=== PATIENT | female | born 1985 | race Caucasian/White ===

== ENCOUNTER → 2016-07-28 | Outpatient (REF) | payer OTHER ==
[~2016-07-28] MED LIST: /LAMO20TA PO; GABA300C2 PO; IBUP200T2 PO; IMPL68IM SC; KLON0.5T PO; PERC7.5T12 PO; PROP10TA8 PO; REME15TA PO
[2016-07-28 18:35] LABS: BASO % 0.4 % (0.0-1.0); EOS # 0.1 K/mm3 (0.0-0.50); LARGE UNSTAINED CELL # 0.2 K/mm3 (0.0-0.4); LARGE UNSTAINED CELL % 2.6 % (0.0-4.0); LYMPH # 2.2 K/mm3 (1.5-6.5); LYMPH % 28.6 % (24.0-44.0); MEAN CORPUSCULAR HEMOGLOBIN 30.4 pg (27.0-33.0); MEAN CORPUSCULAR HGB CONC 33.2 g/dl (32.0-36.5); MEAN CORPUSCULAR VOLUME 91.6 fl (80.0-96.0); MONO # 0.4 K/mm3 (0.0-0.8); MONO % 5.6 % (0.0-5.0); NEUTROPHILS # 4.8 K/mm3 (1.8-7.7); NEUTROPHILS % 61.7 % (36.0-66.0); PLATELET COUNT, AUTOMATED 232 k/mm3 (150-450); RED CELL DISTRIBUTION WIDTH 12.8 % (11.5-14.5); WHITE BLOOD COUNT 7.8 K/mm3 (4.0-10.0)
[2016-07-28 19:34] LABS: FOLLICLE STIMULATING HORMONE 2.1 mIU/mL; LUTEINIZING HORMONE 6.8 mIU/mL; PROLACTIN 6.1 NG/ML
[2016-07-28 19:42] LABS: FREE T4 0.65 NG/DL (0.76-1.46); PERCENT SATURATION 11.9 % (13.2-37.4)
== END ==
LOC: M SFHCPLAZ 15:50
PROVIDERS: ATTEND Physician Assistant Medical
DX: K92.1 Melena (principal); N64.52 Nipple discharge; R23.2 Flushing

== ENCOUNTER → 2016-07-29 | Outpatient (CLI) | payer OTHER ==
--- NOTE | 2016-07-29 16:14 | REP ---
Focused left breast sonography: History: Bloody nipple discharge. Pain in the left breast. Findings: Scanning of the left breast around and posterior the nipple demonstrates one prominent duct and no mass or cyst is seen. No acoustic shadowing is observed. Impression: BIRADS category II benign focused left breast sonography. One slightly prominent duct. No mass seen. If bloody discharge persists, and it can be ascertained that it is originating from a single duct, there may be a potential role for ductography. Clinical follow-up is advised. Signed by Ariel Magallanes MD 07/29/2016 04:25 P
== END ==
LOC: M RAD 10:04
PROVIDERS: ATTEND Physician Assistant Medical
DX: N64.4 Mastodynia (principal)

== ENCOUNTER → 2016-10-24 | Outpatient (REF) | payer OTHER ==
[2016-10-24 12:08] LABS: BASO % 0.2 % (0.0-1.0); EOS # 0.1 K/mm3 (0.0-0.50); EOS % 1.2 % (0.0-3.0); LARGE UNSTAINED CELL # 0.1 K/mm3 (0.0-0.4); LARGE UNSTAINED CELL % 1.6 % (0.0-4.0); LYMPH # 1.9 K/mm3 (1.5-6.5); LYMPH % 24.3 % (24.0-44.0); MEAN CORPUSCULAR HEMOGLOBIN 30.1 pg (27.0-33.0); MEAN CORPUSCULAR HGB CONC 33.4 g/dl (32.0-36.5); MEAN CORPUSCULAR VOLUME 90.1 fl (80.0-96.0); MONO # 0.5 K/mm3 (0.0-0.8); MONO % 5.8 % (0.0-5.0); NEUTROPHILS # 5.3 K/mm3 (1.8-7.7); NEUTROPHILS % 66.8 % (36.0-66.0); PLATELET COUNT, AUTOMATED 248 k/mm3 (150-450); RED CELL DISTRIBUTION WIDTH 12.7 % (11.5-14.5); WHITE BLOOD COUNT 7.9 K/mm3 (4.0-10.0)
[2016-10-24 12:53] LABS: ERYTHROCYTE SEDIMENTATION RATE 44 mm/hr (0-20)
[2016-10-24 13:35] LABS: ANION GAP 11 MEQ/L (8-16); BLOOD UREA NITROGEN 17 MG/DL (7-18); CARBON DIOXIDE LEVEL 25 MEQ/L (21-32); CHLORIDE LEVEL 105 MEQ/L (98-107); CREATININE FOR GFR 0.55 MG/DL (0.55-1.02); GLOMERULAR FILTRATION RATE > 60.0 (>60); GLUCOSE, FASTING 124 MG/DL (70-105); POTASSIUM SERUM 3.2 MEQ/L (3.5-5.1); SODIUM LEVEL 141 MEQ/L (136-145)
== END ==
LOC: M SFHCPLAZ 10:05
PROVIDERS: ATTEND Physician Assistant Medical
DX: M51.36 Other intervertebral disc degeneration, lumbar region (principal)

== ENCOUNTER → 2016-10-29 | Outpatient (CLI) | payer OTHER ==
--- NOTE | 2016-10-29 14:26 | REP ---
MRI STUDY LUMBAR SPINE WITHOUT AND WITH IV GADOLINIUM: HISTORY: Degenerative disc disease. Swelling at prior injection site from May 2016. Low back and upper back pain. Comparison lumbar spine MRI study is from February 11, 2016. TECHNIQUE: Sagittal and axial T1 and T2-weighted scans are acquired in the usual fashion with and without fat saturation. Sequences include spin echo, turbo spin-echo, and STIR imaging sequences. Post gadolinium enhanced axial and sagittal images are acquired with T1-weighted fat sat sequences. The gadolinium enhancement dose is 10 mL of intravenous ProHance. MRI FINDINGS: Lumbar vertebral body heights are preserved. Alignment is normal and unchanged. There is some decreased disc space height and signal intensity again noted at the L4-5 and L5-S1 disc spaces consistent with degenerate disc disease at these two levels. The conus medullaris remains normal in position and appearance at L1. Incidental note is made of a somewhat prominent distal common bile duct, 8 mm in greatest dimension. Consider right upper quadrant sonography. No other extra spinal abnormality is seen. Axial and sagittal images at the L4-5 disc level demonstrate a broad-based right paracentral disc protrusion, which has improved in appearance from the February 11, 2016 study. This is subtly indents the ventral margin of the thecal sac but this has decreased in size. No neural foraminal narrowing or central canal stenosis is seen. At L5-S1, today's imaging demonstrates mild central disc bulging effacing the ventral epidural fat but without thecal sac compression. No neural foraminal narrowing is seen. No new disc herniation is seen. Other disc levels remain unremarkable. Post gadolinium enhanced images show no abnormal gadolinium enhancement. IMPRESSION: 1. No paraspinal mass or abnormal fluid collection. 2. Degenerative disc changes L4-5 and L5-S1. The central disc protrusion seen and L4-5 is smaller and has improved somewhat. 3. Incidental note is made of a somewhat prominent common bile duct, 8 mm. Consider right upper quadrant sonography for further evaluation. Signed by Ariel Magallanes MD 10/29/2016 02:37 P
== END ==
LOC: M RAD 10:31
PROVIDERS: ATTEND Physician Assistant Medical
DX: M51.36 Other intervertebral disc degeneration, lumbar region (principal)

== ENCOUNTER → 2017-05-06 | Outpatient (REF) | payer OTHER ==
[2017-05-20 14:16] LABS: BENZODIAZEPINES, URINE SCREEN Negative ng/mL (Cutoff=200); METHADONE, URINE SCREEN Negative ng/mL (Cutoff=300); OPIATES, URINE Negative ng/mL (Cutoff=300); OXYCODONE URINE Positive (.); pH, URINE 5.8 (4.5-8.9)
== END ==
LOC: M SFHCPLAZ 11:33
PROVIDERS: ATTEND Physician Assistant Medical
DX: M51.36 Other intervertebral disc degeneration, lumbar region (principal); R30.0 Dysuria

== ENCOUNTER → 2017-06-16 | Outpatient (REF) | payer OTHER ==
[2017-06-16 16:27] LABS: BASO % 0.3 % (0.0-1.0); EOS # 0.1 10^3/uL (0.0-0.50); EOS % 0.8 % (0.0-3.0); IMMATURE GRANULOCYTE % 0.3 % (0-0); LYMPH # 2.5 10^3/uL (1.5-4.5); LYMPH % 27.2 % (24.0-44.0); MEAN CORPUSCULAR HEMOGLOBIN 29.7 pg (27.0-33.0); MEAN CORPUSCULAR VOLUME 90.2 fl (80.0-96.0); MONO # 0.8 10^3/uL (0.0-0.8); MONO % 9.1 % (0.0-5.0); NEUTROPHILS # 5.8 10^3/uL (1.8-7.7); NEUTROPHILS % 62.3 % (36.0-66.0); PLATELET COUNT, AUTOMATED 289 10^3/uL (150-450); RED CELL DISTRIBUTION WIDTH 13.2 % (11.5-14.5); WHITE BLOOD COUNT 9.2 10^3/uL (4.0-10.0)
[2017-06-16 16:55] LABS: ERYTHROCYTE SEDIMENTATION RATE 43 mm/hr (0-20)
== END ==
LOC: M SFHCPLAZ 14:16
PROVIDERS: ATTEND Physician Assistant Medical
DX: I51.7 Cardiomegaly (principal)

== ENCOUNTER → 2017-11-30 | Outpatient (REF) | payer OTHER ==
[2017-12-03 00:08] LABS: Lyme Disease IgG/IgM Antibodie <0.91 ISR (0.00-0.90); Lyme Disease IgM Ab Quantitati <0.80 index (0.00-0.79)
== END ==
LOC: M SFHCPLAZ 15:22
DX: R50.9 Fever, unspecified (principal)

== ENCOUNTER → 2018-05-20 | Outpatient (REF) | payer OTHER ==
[2018-05-20 17:58] LABS: BASO % 0.9 % (0.0-1.0); EOS # 0.1 10^3/uL (0.0-0.50); EOS % 1.5 % (0.0-3.0); HEMATOCRIT 29.6 % (36.0-47.0); HEMOGLOBIN 9.1 g/dl (12.0-15.5); IMMATURE GRANULOCYTE % 0.2 % (0-3.0); LYMPH # 1.9 10^3/uL (1.5-4.5); LYMPH % 40.3 % (24.0-44.0); MEAN CORPUSCULAR HEMOGLOBIN 24.9 pg (27.0-33.0); MEAN CORPUSCULAR HGB CONC 30.7 g/dl (32.0-36.5); MEAN CORPUSCULAR VOLUME 81.1 fl (80.0-96.0); MONO # 0.4 10^3/uL (0.0-0.8); MONO % 9.1 % (0.0-5.0); NEUTROPHILS # 2.2 10^3/uL (1.8-7.7); PLATELET COUNT, AUTOMATED 177 10^3/uL (150-450); RED BLOOD COUNT 3.65 10^6/uL (4.00-5.40); RED CELL DISTRIBUTION WIDTH 15.1 % (11.5-14.5); WHITE BLOOD COUNT 4.6 10^3/uL (4.0-10.0)
[2018-05-20 18:32] LABS: ALBUMIN 3.8 GM/DL (3.2-5.2); ALBUMIN/GLOBULIN RATIO 1.23 (1.00-1.93); ALKALINE PHOSPHATASE 65 U/L (45-117); ALT/SGPT 14 U/L (12-78); ANION GAP 10 MEQ/L (8-16); AST/SGOT 10 U/L (7-37); BILIRUBIN,TOTAL 0.2 MG/DL (0.2-1.0); BLOOD UREA NITROGEN 9 MG/DL (7-18); CALCIUM LEVEL 8.1 MG/DL (8.5-10.1); CARBON DIOXIDE LEVEL 26 MEQ/L (21-32); CHLORIDE LEVEL 105 MEQ/L (98-107); CREATININE FOR GFR 0.38 MG/DL (0.55-1.30); FERRITIN 6 NG/ML (8-252); GLOMERULAR FILTRATION RATE > 60.0 (>60); GLUCOSE, FASTING 82 MG/DL (70-100); IRON (FE) 27 UG/DL (50-170); PERCENT SATURATION 6.3 % (13.2-45.0); POTASSIUM SERUM 3.1 MEQ/L (3.5-5.1); SODIUM LEVEL 141 MEQ/L (136-145); TOTAL IRON BINDING CAPACITY 429 UG/DL (250-450); TOTAL PROTEIN 6.9 GM/DL (6.4-8.2)
== END ==
LOC: M SFHCPLAZ 16:23
DX: K27.9 Peptic ulcer, site unspecified, unspecified as acute or chronic, without hemorrhage or perforation (principal); M51.36 Other intervertebral disc degeneration, lumbar region
CPT/HCPCS: 83550

== ENCOUNTER → 2018-05-31 | Outpatient (REF) | payer OTHER ==
[2018-05-31 19:03] LABS: BASO % 0.5 % (0.0-1.0); EOS # 0.1 10^3/uL (0.0-0.50); EOS % 0.9 % (0.0-3.0); HEMATOCRIT 30.2 % (36.0-47.0); IMMATURE GRANULOCYTE % 0.3 % (0-3.0); LYMPH # 2.2 10^3/uL (1.5-4.5); LYMPH % 33.3 % (24.0-44.0); MEAN CORPUSCULAR HEMOGLOBIN 24.8 pg (27.0-33.0); MEAN CORPUSCULAR HGB CONC 29.8 g/dl (32.0-36.5); MEAN CORPUSCULAR VOLUME 83.2 fl (80.0-96.0); MONO # 0.6 10^3/uL (0.0-0.8); MONO % 9.8 % (0.0-5.0); NEUTROPHILS # 3.6 10^3/uL (1.8-7.7); NEUTROPHILS % 55.2 % (36.0-66.0); PLATELET COUNT, AUTOMATED 222 10^3/uL (150-450); RED BLOOD COUNT 3.63 10^6/uL (4.00-5.40); RED CELL DISTRIBUTION WIDTH 15.3 % (11.5-14.5); WHITE BLOOD COUNT 6.5 10^3/uL (4.0-10.0)
[2018-05-31 19:06] LABS: ALBUMIN/GLOBULIN RATIO 1.43 (1.00-1.93); ALKALINE PHOSPHATASE 77 U/L (45-117); ALT/SGPT 12 U/L (12-78); ANION GAP 7 MEQ/L (8-16); AST/SGOT 9 U/L (7-37); BILIRUBIN,TOTAL 0.2 MG/DL (0.2-1.0); BLOOD UREA NITROGEN 10 MG/DL (7-18); CALCIUM LEVEL 8.4 MG/DL (8.5-10.1); CARBON DIOXIDE LEVEL 27 MEQ/L (21-32); CHLORIDE LEVEL 107 MEQ/L (98-107); CREATININE FOR GFR 0.27 MG/DL (0.55-1.30); GLOMERULAR FILTRATION RATE > 60.0 (>60); GLUCOSE, FASTING 80 MG/DL (70-100); POTASSIUM SERUM 3.4 MEQ/L (3.5-5.1); SODIUM LEVEL 141 MEQ/L (136-145); TOTAL PROTEIN 6.8 GM/DL (6.4-8.2)
== END ==
LOC: M SFHCPLAZ 16:26
DX: E87.6 Hypokalemia (principal)

== ENCOUNTER → 2019-01-10 | Outpatient (CLI) | payer OTHER ==
[~2019-01-10] MED LIST changes: -/LAMO20TA PO; +LAMI1TAB9 PO
--- NOTE | 2019-01-10 13:47 | REP ---
Clinical: Superficial swelling. Technique: Real time abreu scale ultrasound examination using linear high frequency transducer. Findings: Directed ultrasound examination midline base of the spine at the site of prior epidural injection demonstrates normal subcutaneous tissue without fluid collection, mass or obvious abnormality by ultrasound examination. Impression: No obvious abnormality. Electronically Signed by Rolando Quiroz MD 01/10/2019 01:39 P
== END ==
LOC: M RAD 13:02
PROVIDERS: ATTEND Physician Assistant Medical
DX: M51.36 Other intervertebral disc degeneration, lumbar region (principal)

== ENCOUNTER → 2019-12-16 | Outpatient (REF) | payer OTHER ==
[~2019-12-16] MED LIST changes: +APAP500T10 PO; +BISO5TAB14 PO; +CARA1TAB6 PO; +IBUP200C25 PO; +KLOR20TA42 FT; +LORA-674 PO; +NEUR300C PO; +NEUR600T PO; +OMEP40CA97 PO; +OXYC1TAB23 PO; +TIZA6CAP PO; +VITA-243 PO
[2019-12-16 15:09] LABS: BASO % 0.6 % (0.0-1.0); EOS # 0.1 10^3/uL (0.0-0.5); EOS % 1.8 % (0.0-3.0); HEMATOCRIT 28.9 % (36.0-47.0); HEMOGLOBIN 8.9 g/dl (12.0-15.5); LYMPH # 2.4 10^3/uL (1.5-5.0); LYMPH % 33.1 % (24.0-44.0); MEAN CORPUSCULAR HEMOGLOBIN 25.6 pg (27.0-33.0); MEAN CORPUSCULAR HGB CONC 30.8 g/dl (32.0-36.5); MEAN CORPUSCULAR VOLUME 83.3 fl (80.0-96.0); MONO # 0.7 10^3/uL (0.0-0.8); MONO % 9.7 % (0.0-5.0); NEUTROPHILS # 3.9 10^3/uL (1.5-8.5); NEUTROPHILS % 54.4 % (36.0-66.0); PLATELET COUNT, AUTOMATED 270 10^3/uL (150-450); RED BLOOD COUNT 3.47 10^6/uL (4.00-5.40); WHITE BLOOD COUNT 7.2 10^3/uL (4.0-10.0)
[2019-12-16 15:25] LABS: ALBUMIN 3.2 GM/DL (3.2-5.2); ALT/SGPT 15 U/L (12-78); BILIRUBIN,TOTAL 0.1 MG/DL (0.2-1.0); BLOOD UREA NITROGEN 14 MG/DL (7-18); C REACTIVE PROTEIN QUANTITATIV < 0.30 MG/DL (0.00-0.30); CARBON DIOXIDE LEVEL 27 MEQ/L (21-32); CHLORIDE LEVEL 109 MEQ/L (98-107); CREATININE FOR GFR 0.38 MG/DL (0.55-1.30); GLOMERULAR FILTRATION RATE > 60.0 (>60); GLUCOSE, FASTING 88 MG/DL (70-100); SODIUM LEVEL 141 MEQ/L (136-145); TOTAL PROTEIN 6.5 GM/DL (6.4-8.2)
[2019-12-16 15:38] LABS: ERYTHROCYTE SEDIMENTATION RATE 45 mm/hr (0-20)
[2019-12-16 17:54] LABS: APPEARANCE, URINE HAZY (CLEAR); BACTERIA, URINE AUTO NEGATIVE (NEGATIVE); BILIRUBIN, URINE AUTO NEGATIVE (NEGATIVE); BLOOD, URINE BLOOD NEGATIVE (NEGATIVE); COLOR, URINE AMBER (YELLOW); GLUCOSE, URINE (UA) AUTO NEGATIVE (NEGATIVE); KETONE, URINE AUTO NEGATIVE (NEGATIVE); LEUKOCYTE ESTERASE, URINE AUTO NEGATIVE (NEGATIVE); MUCUS, URINE SMALL (NEGATIVE); NITRITE, URINE AUTO NEGATIVE (NEGATIVE); PROTEIN, URINE AUTO NEGATIVE (NEGATIVE); RBC, URINE AUTO 3 /HPF (0-3); SPECIFIC GRAVITY URINE AUTO 1.026 (1.002-1.035); SQUAMOUS EPITHELIAL CELL UR AU 4 /HPF (0-6); UROBILINOGEN, URINE AUTO 0.2 mg/dL (0.0-2.0); WBC, URINE AUTO 1 /HPF (0-3)
[2019-12-23 09:07] LABS: OPIATES, URINE Negative ng/mL (Cutoff=300); OXYCODONE URINE Positive (.); OXYCODONE, URINE CONFIRM 2635 ng/mL (Cutoff=100); OXYCODONE/OXYMORPH, URINE Positive (Cutoff=100); OXYMORPHONE, URINE Positive (.); OXYMORPHONE, URINE CONFIRM 378 ng/mL (Cutoff=100)
== END ==
LOC: M SFHCPLAZ 14:15
PROVIDERS: ATTEND Physician Assistant Medical
DX: R30.0 Dysuria (principal); F11.90 Opioid use, unspecified, uncomplicated; R50.81 Fever presenting with conditions classified elsewhere

== ENCOUNTER → 2020-01-02 | Outpatient (REF) | payer OTHER ==
[2020-01-02 13:17] LABS: BASO # 0.1 10^3/uL (0.0-0.2); BASO % 0.9 % (0.0-1.0); EOS # 0.2 10^3/uL (0.0-0.5); EOS % 2.1 % (0.0-3.0); HEMATOCRIT 31.9 % (36.0-47.0); HEMOGLOBIN 9.7 g/dl (12.0-15.5); LYMPH # 2.6 10^3/uL (1.5-5.0); LYMPH % 37.7 % (24.0-44.0); MEAN CORPUSCULAR HEMOGLOBIN 25.6 pg (27.0-33.0); MEAN CORPUSCULAR HGB CONC 30.4 g/dl (32.0-36.5); MEAN CORPUSCULAR VOLUME 84.2 fl (80.0-96.0); MONO # 0.6 10^3/uL (0.0-0.8); MONO % 8.1 % (0.0-5.0); NEUTROPHILS # 3.6 10^3/uL (1.5-8.5); NEUTROPHILS % 50.8 % (36.0-66.0); PLATELET COUNT, AUTOMATED 253 10^3/uL (150-450); RED BLOOD COUNT 3.79 10^6/uL (4.00-5.40)
[2020-01-02 13:54] LABS: FERRITIN 6 NG/ML (8-252); IRON (FE) 20 UG/DL (50-170)
== END ==
LOC: M SFHCPLAZ 12:08
PROVIDERS: ATTEND Physician Assistant Medical
DX: D50.0 Iron deficiency anemia secondary to blood loss (chronic) (principal)

== ENCOUNTER → 2020-05-21 | Outpatient (REF) | payer OTHER ==
[2020-05-21 17:14] LABS: HEMOGLOBIN 7.2 g/dl (12.0-15.5); MEAN CORPUSCULAR HEMOGLOBIN 22.3 pg (27.0-33.0); MEAN CORPUSCULAR HGB CONC 27.7 g/dl (32.0-36.5); MEAN CORPUSCULAR VOLUME 80.5 fl (80.0-96.0); PLATELET COUNT, AUTOMATED 259 10^3/uL (150-450); RED BLOOD COUNT 3.23 10^6/uL (4.00-5.40); WHITE BLOOD COUNT 7.1 10^3/uL (4.0-10.0)
[2020-05-21 18:36] LABS: ERYTHROCYTE SEDIMENTATION RATE 45 mm/hr (0-20)
[2020-05-21 18:45] LABS: C REACTIVE PROTEIN QUANTITATIV < 0.30 MG/DL (0.00-0.30); FERRITIN 5 NG/ML (8-252); IRON (FE) 20 UG/DL (50-170)
== END ==
LOC: M SFHCPLAZ 14:20
PROVIDERS: ATTEND Physician Assistant Medical
DX: D50.0 Iron deficiency anemia secondary to blood loss (chronic) (principal); R19.7 Diarrhea, unspecified

== ENCOUNTER → 2020-05-23 | Outpatient (CLI) | payer OTHER | LOC: M LAB 13:26 | PROVIDERS: ATTEND Physician Assistant Medical | DX: D50.9 Iron deficiency anemia, unspecified (principal); Z88.1 Allergy status to other antibiotic agents; Z88.8 Allergy status to other drugs, medicaments and biological substances ==

== ENCOUNTER 2020-05-24 13:20 | Outpatient (CLI) | payer OTHER ==
[2020-05-24] VITALS (9 sets, daily range): BP systolic 110–133; BP diastolic 59–96
[~2020-05-24] VITALS: Ht 162.6 cm; Wt 52.9 kg
[~2020-05-24 13:20] MED LIST changes: +ACETAMINOPHEN 500 MG TAB PO SCH; +diphenhydrAMINE 25MG CAP PO SCH
== END 2020-05-24 17:10 | disposition home or self-care (01) ==
LOC: M INFU 13:20
PROVIDERS: ATTEND Physician Assistant Medical
DX: D50.9 Iron deficiency anemia, unspecified (principal); Z88.1 Allergy status to other antibiotic agents
CPT/HCPCS: 36430; P9016

== ENCOUNTER → 2020-07-04 | Outpatient (REF) | payer OTHER ==
[~2020-07-04] MED LIST changes: -ACETAMINOPHEN 500 MG TAB PO SCH; -diphenhydrAMINE 25MG CAP PO SCH
[2020-07-04 18:02] LABS: BASO # 0.1 10^3/uL (0.0-0.2); BASO % 0.7 % (0.0-1.0); EOS # 0.1 10^3/uL (0.0-0.5); EOS % 1.6 % (0.0-3.0); HEMOGLOBIN 9.4 g/dl (12.0-15.5); LYMPH # 1.9 10^3/uL (1.5-5.0); LYMPH % 27.3 % (24.0-44.0); MEAN CORPUSCULAR HEMOGLOBIN 24.7 pg (27.0-33.0); MEAN CORPUSCULAR HGB CONC 29.4 g/dl (32.0-36.5); MEAN CORPUSCULAR VOLUME 84.2 fl (80.0-96.0); MONO # 0.5 10^3/uL (0.0-0.8); MONO % 7.7 % (0.0-5.0); NEUTROPHILS # 4.4 10^3/uL (1.5-8.5); NEUTROPHILS % 62.4 % (36.0-66.0); PLATELET COUNT, AUTOMATED 212 10^3/uL (150-450)
[2020-07-04 18:08] LABS: FERRITIN 6 NG/ML (8-252); IRON (FE) 51 UG/DL (50-170)
== END ==
LOC: M SFHCPLAZ 14:33
PROVIDERS: ATTEND Physician Assistant Medical
DX: K27.9 Peptic ulcer, site unspecified, unspecified as acute or chronic, without hemorrhage or perforation (principal)

== ENCOUNTER → 2021-04-09 | Outpatient (CLI) | payer OTHER ==
[~2021-04-09] MED LIST changes: -KLOR20TA42 FT; +OMEP40CA4 PO; -OMEP40CA97 PO; +POTA-141 FT
--- NOTE | 2021-04-09 12:06 | REP ---
INDICATION: LBP W/ DDD. Pain radiating down both legs, left greater than right. COMPARISON: Comparison MRI study of the lumbar spine is from October 29, 2016. TECHNIQUE: Sagittal and axial T1 and T2-weighted scans are acquired in the usual fashion with and without fat saturation. Sequences include spin echo, turbo spin-echo, and STIR imaging sequences. FINDINGS: Lumbar vertebral body heights are preserved. Alignment is normal. There is no evidence of spondylolysis or spondylolisthesis. The tip of the conus medullaris is normal in position and appearance unchanged at L1. CBD is visible today, within normal range measuring 5.4 mm. No extra vertebral abnormality is appreciated. Axial and sagittal images taken at L1-2, L2-3, and L3-4 remain unremarkable. No spinal stenosis or foraminal narrowing is seen at any of these levels. At L4-5, there is degenerative disc narrowing and some desiccation. A small central focal disc bulge is seen. This is appears improved from the 2017 prior study. There is minimal indentation of the ventral margin of the thecal sac. No spinal stenosis or foraminal narrowing is seen. There is mild facet hypertrophy at L4-5. At L5-S1, there is a small central focal disc protrusion which extends caudally for 2-3 mm over the posterior margin of S1. There is degenerative narrowing and desiccation of the L5-S1 disc. There is subtle indentation of the ventral margin of the thecal sac. No spinal stenosis is seen. Minimal facet hypertrophy is present. No foraminal narrowing is seen. IMPRESSION: Degenerative disc and facet changes are again noted at L4-5 and L5-S1. L4-5 central disc bulge is improved. There is a small central focal disc protrusion at L5-S1 with only minimal thecal sac indentation. No foraminal narrowing or spinal stenosis seen. <Electronically signed by Robbie Magallanes > 04/09/21 [id number]
== END ==
LOC: M PLAIMG 10:29
PROVIDERS: ATTEND Physician Assistant Medical
DX: M51.36 Other intervertebral disc degeneration, lumbar region (principal)

== ENCOUNTER → 2021-07-02 | Outpatient (CLI) | payer OTHER | LOC: M PAIN 11:00 | PROVIDERS: ATTEND Anesthesiology | DX: M54.50 Low back pain, unspecified (principal); M79.18 Myalgia, other site; M53.3 Sacrococcygeal disorders, not elsewhere classified; F31.9 Bipolar disorder, unspecified; K21.9 Gastro-esophageal reflux disease without esophagitis; F41.9 Anxiety disorder, unspecified; F43.10 Post-traumatic stress disorder, unspecified; Z87.820 Personal history of traumatic brain injury; Z91.410 Personal history of adult physical and sexual abuse; F17.210 Nicotine dependence, cigarettes, uncomplicated; Z79.891 Long term (current) use of opiate analgesic; Z79.899 Other long term (current) drug therapy; Z88.0 Allergy status to penicillin; Z88.8 Allergy status to other drugs, medicaments and biological substances ==

== ENCOUNTER → 2021-09-25 | Outpatient (CLI) | payer OTHER | LOC: M LABSMTC 10:00 | PROVIDERS: ATTEND Anesthesiology | DX: Z11.52 Encounter for screening for COVID-19 (principal) ==

== ENCOUNTER → 2021-09-26 | Outpatient (CLI) | payer OTHER | LOC: M PAIN 14:45 | PROVIDERS: ATTEND Nurse Practitioner Family | DX: M79.10 Myalgia, unspecified site (principal); F31.9 Bipolar disorder, unspecified; M51.36 Other intervertebral disc degeneration, lumbar region; K21.9 Gastro-esophageal reflux disease without esophagitis; J30.9 Allergic rhinitis, unspecified; F41.9 Anxiety disorder, unspecified; F43.10 Post-traumatic stress disorder, unspecified; M54.2 Cervicalgia; F17.210 Nicotine dependence, cigarettes, uncomplicated; Z79.891 Long term (current) use of opiate analgesic; Z79.899 Other long term (current) drug therapy; Z87.820 Personal history of traumatic brain injury; Z88.0 Allergy status to penicillin; Z88.8 Allergy status to other drugs, medicaments and biological substances ==

== ENCOUNTER → 2021-09-30 | Outpatient (CLI) | payer OTHER ==
[~2021-09-30] MED LIST changes: +BUPIVACAINE HCL 0.25% 10ML VIAL As Ordered ONE; +BUPIVACAINE HCL 0.25% 30ML VIAL As Ordered ONE; +TRIAMCINOLONE ACETONIDE SUSP 40 MG/ML VIAL (J3301) As Ordered ONE; +diazePAM 5MG TABLET As Ordered ONE; +oxyCODONE 5MG TAB As Ordered ONE
== END ==
LOC: M PAIN 08:30
PROVIDERS: ATTEND Anesthesiology
DX: M79.18 Myalgia, other site (principal); F31.9 Bipolar disorder, unspecified; M51.36 Other intervertebral disc degeneration, lumbar region; K21.9 Gastro-esophageal reflux disease without esophagitis; J30.9 Allergic rhinitis, unspecified; F41.9 Anxiety disorder, unspecified; F43.10 Post-traumatic stress disorder, unspecified; M54.2 Cervicalgia; F17.210 Nicotine dependence, cigarettes, uncomplicated; Z79.891 Long term (current) use of opiate analgesic; Z79.899 Other long term (current) drug therapy; Z87.820 Personal history of traumatic brain injury; Z88.0 Allergy status to penicillin; Z88.8 Allergy status to other drugs, medicaments and biological substances
CPT/HCPCS: 20552; J3301

== ENCOUNTER → 2021-10-10 | Outpatient (CLI) | payer OTHER ==
[~2021-10-10] MED LIST changes: -BUPIVACAINE HCL 0.25% 10ML VIAL As Ordered ONE; -BUPIVACAINE HCL 0.25% 30ML VIAL As Ordered ONE; -TRIAMCINOLONE ACETONIDE SUSP 40 MG/ML VIAL (J3301) As Ordered ONE; -diazePAM 5MG TABLET As Ordered ONE; -oxyCODONE 5MG TAB As Ordered ONE
[2021-10-10 10:42] LABS: HEMATOCRIT 25.7 % (36.0-47.0); HEMOGLOBIN 7.1 g/dl (12.0-15.5); MEAN CORPUSCULAR HEMOGLOBIN 23.5 pg (27.0-33.0); MEAN CORPUSCULAR HGB CONC 27.6 g/dl (32.0-36.5); MEAN CORPUSCULAR VOLUME 85.1 fl (80.0-96.0); PLATELET COUNT, AUTOMATED 219 10^3/uL (150-450); RED BLOOD COUNT 3.02 10^6/uL (4.00-5.40); WHITE BLOOD COUNT 5.8 10^3/uL (4.0-10.0)
[2021-10-10 11:15] LABS: FERRITIN 5 NG/ML (8-252); IRON (FE) 19 UG/DL (50-170)
[2021-10-10 11:17] LABS: BASOPHILS 1 % (0-1); EOSINOPHILS 4 % (0-3); HYPERSEGMENTED POLYS 2+; LYMPHOCYTES 37 % (16-44); MONOCYTES 5 % (0-5); NEUTROPHILS 53 % (28-66)
[2021-10-10 11:18] LABS: STOMATOCYTES 3+
[2021-10-10 11:19] LABS: OVALOCYTES 2+
[2021-10-10 11:20] LABS: PLATELET ESTIMATE NORMAL (NORMAL); TEAR DROP CELLS 1+
[2021-10-10 11:21] LABS: MICROCYTOSIS 2+
== END ==
LOC: M LAB 09:39
PROVIDERS: ATTEND Physician Assistant Medical
DX: D50.9 Iron deficiency anemia, unspecified (principal)

== ENCOUNTER 2021-10-11 12:06 | Outpatient (CLI) | payer OTHER ==
[~2021-10-11] VITALS: Ht 158.8 cm; Wt 50.0 kg
[2021-10-11] MEDS ORDERED: diphenhydrAMINE 25MG CAP PO ONE (12:30)
[2021-10-11] MEDS ORDERED: ACETAMINOPHEN 325 MG TAB PO ONE (12:30)
[2021-10-11 12:48] VITALS: BP 137/97
[2021-10-11 13:05] VITALS: BP 135/74
[2021-10-11 14:41] VITALS: BP 133/92
[2021-10-11 15:10] VITALS: BP 138/82
[2021-10-11 16:09] VITALS: BP 148/78
[2021-10-11 16:15] VITALS: BP 132/98
== END 2021-10-11 16:15 | disposition home or self-care (01) ==
LOC: M INFU 12:06
PROVIDERS: ATTEND Physician Assistant Medical
DX: D64.9 Anemia, unspecified (principal); Z88.1 Allergy status to other antibiotic agents
CPT/HCPCS: 36430; 86850; 86870; 86900; 86901; 86905; 86920; P9016

== ENCOUNTER → 2021-11-20 | Outpatient (CLI) | payer OTHER | LOC: M PAIN 10:00 | PROVIDERS: ATTEND Nurse Practitioner Family | DX: M79.10 Myalgia, unspecified site (principal); F31.9 Bipolar disorder, unspecified; F41.9 Anxiety disorder, unspecified; M51.36 Other intervertebral disc degeneration, lumbar region; K21.9 Gastro-esophageal reflux disease without esophagitis; J30.9 Allergic rhinitis, unspecified; K27.9 Peptic ulcer, site unspecified, unspecified as acute or chronic, without hemorrhage or perforation; Z87.820 Personal history of traumatic brain injury; F43.10 Post-traumatic stress disorder, unspecified; M54.2 Cervicalgia; F17.210 Nicotine dependence, cigarettes, uncomplicated; Z79.891 Long term (current) use of opiate analgesic; Z79.1 Long term (current) use of non-steroidal anti-inflammatories (NSAID); Z79.899 Other long term (current) drug therapy; Z88.0 Allergy status to penicillin; Z88.8 Allergy status to other drugs, medicaments and biological substances ==

== ENCOUNTER → 2022-05-22 | Outpatient (CLI) | payer OTHER | LOC: M LABSMTC 09:50 | PROVIDERS: ATTEND Anesthesiology | DX: Z01.812 Encounter for preprocedural laboratory examination (principal); Z20.822 Contact with and (suspected) exposure to COVID-19 ==

== ENCOUNTER → 2022-05-26 | Outpatient (CLI) | payer OTHER ==
[~2022-05-26] MED LIST changes: +BUPIVACAINE HCL 0.25% 10ML VIAL As Ordered ONE; +BUPIVACAINE HCL 0.25% 30ML VIAL As Ordered ONE; +TRIAMCINOLONE ACETONIDE SUSP 40 MG/ML VIAL (J3301) As Ordered ONE; +diazePAM 5MG TABLET As Ordered ONE; +oxyCODONE 5MG TAB As Ordered ONE
== END ==
LOC: M PAIN 10:30
PROVIDERS: ATTEND Anesthesiology
DX: M79.18 Myalgia, other site (principal); M54.50 Low back pain, unspecified; M51.36 Other intervertebral disc degeneration, lumbar region; M47.816 Spondylosis without myelopathy or radiculopathy, lumbar region; K21.9 Gastro-esophageal reflux disease without esophagitis; J30.9 Allergic rhinitis, unspecified; F41.9 Anxiety disorder, unspecified; F43.10 Post-traumatic stress disorder, unspecified; M47.812 Spondylosis without myelopathy or radiculopathy, cervical region; M54.2 Cervicalgia; F17.210 Nicotine dependence, cigarettes, uncomplicated; Z79.1 Long term (current) use of non-steroidal anti-inflammatories (NSAID); Z79.899 Other long term (current) drug therapy; Z88.1 Allergy status to other antibiotic agents; Z88.8 Allergy status to other drugs, medicaments and biological substances
CPT/HCPCS: 20552; J3301

== ENCOUNTER → 2022-06-09 | Outpatient (CLI) | payer OTHER ==
[~2022-06-09] MED LIST changes: -BUPIVACAINE HCL 0.25% 10ML VIAL As Ordered ONE; -BUPIVACAINE HCL 0.25% 30ML VIAL As Ordered ONE; -TRIAMCINOLONE ACETONIDE SUSP 40 MG/ML VIAL (J3301) As Ordered ONE; -diazePAM 5MG TABLET As Ordered ONE; -oxyCODONE 5MG TAB As Ordered ONE
== END ==
LOC: M PAIN 13:15
PROVIDERS: ATTEND Anesthesiology
DX: M79.10 Myalgia, unspecified site (principal); M54.50 Low back pain, unspecified; G89.29 Other chronic pain; K21.9 Gastro-esophageal reflux disease without esophagitis; F17.210 Nicotine dependence, cigarettes, uncomplicated; Z86.59 Personal history of other mental and behavioral disorders; Z87.820 Personal history of traumatic brain injury; Z88.1 Allergy status to other antibiotic agents; Z88.8 Allergy status to other drugs, medicaments and biological substances; Z79.899 Other long term (current) drug therapy

== ENCOUNTER → 2022-06-17 | Outpatient (CLI) | payer OTHER | LOC: M PAIN 14:45 | PROVIDERS: ATTEND Anesthesiology | DX: M54.50 Low back pain, unspecified (principal); F31.9 Bipolar disorder, unspecified; M51.36 Other intervertebral disc degeneration, lumbar region; M47.816 Spondylosis without myelopathy or radiculopathy, lumbar region; K21.9 Gastro-esophageal reflux disease without esophagitis; J30.9 Allergic rhinitis, unspecified; F41.9 Anxiety disorder, unspecified; Z87.820 Personal history of traumatic brain injury; F43.10 Post-traumatic stress disorder, unspecified; M54.2 Cervicalgia; Z79.1 Long term (current) use of non-steroidal anti-inflammatories (NSAID); Z79.899 Other long term (current) drug therapy; F17.210 Nicotine dependence, cigarettes, uncomplicated; Z88.0 Allergy status to penicillin; Z88.8 Allergy status to other drugs, medicaments and biological substances; Z53.21 Procedure and treatment not carried out due to patient leaving prior to being seen by health care provider ==

== ENCOUNTER → 2022-06-20 | Outpatient (CLI) | payer OTHER | LOC: M PAIN 09:00 | PROVIDERS: ATTEND Anesthesiology | DX: M54.50 Low back pain, unspecified (principal); M53.3 Sacrococcygeal disorders, not elsewhere classified; F31.9 Bipolar disorder, unspecified; M47.816 Spondylosis without myelopathy or radiculopathy, lumbar region; K21.9 Gastro-esophageal reflux disease without esophagitis; M51.36 Other intervertebral disc degeneration, lumbar region; J30.9 Allergic rhinitis, unspecified; F41.9 Anxiety disorder, unspecified; Z87.820 Personal history of traumatic brain injury; F43.10 Post-traumatic stress disorder, unspecified; M54.2 Cervicalgia; F17.210 Nicotine dependence, cigarettes, uncomplicated; Z91.410 Personal history of adult physical and sexual abuse; Z79.899 Other long term (current) drug therapy; Z88.0 Allergy status to penicillin; Z88.8 Allergy status to other drugs, medicaments and biological substances ==

== ENCOUNTER → 2022-07-23 | Outpatient (CLI) | payer OTHER | LOC: M PAIN 09:45 | PROVIDERS: ATTEND Anesthesiology | DX: M53.3 Sacrococcygeal disorders, not elsewhere classified (principal); K21.9 Gastro-esophageal reflux disease without esophagitis; F17.210 Nicotine dependence, cigarettes, uncomplicated; Z86.59 Personal history of other mental and behavioral disorders; Z87.820 Personal history of traumatic brain injury; Z88.1 Allergy status to other antibiotic agents; Z88.8 Allergy status to other drugs, medicaments and biological substances; Z79.899 Other long term (current) drug therapy ==

== ENCOUNTER → 2022-07-30 | Outpatient (CLI) | payer OTHER | LOC: M PAIN 09:45 | PROVIDERS: ATTEND Anesthesiology | DX: M46.1 Sacroiliitis, not elsewhere classified (principal); M53.3 Sacrococcygeal disorders, not elsewhere classified; F31.9 Bipolar disorder, unspecified; M47.816 Spondylosis without myelopathy or radiculopathy, lumbar region; K21.9 Gastro-esophageal reflux disease without esophagitis; J30.9 Allergic rhinitis, unspecified; F41.9 Anxiety disorder, unspecified; F43.10 Post-traumatic stress disorder, unspecified; Z87.820 Personal history of traumatic brain injury; M54.2 Cervicalgia; Z79.1 Long term (current) use of non-steroidal anti-inflammatories (NSAID); Z79.899 Other long term (current) drug therapy; F17.210 Nicotine dependence, cigarettes, uncomplicated; Z88.0 Allergy status to penicillin; Z88.8 Allergy status to other drugs, medicaments and biological substances ==

== ENCOUNTER → 2022-09-17 | Outpatient (CLI) | payer OTHER | LOC: M LABSMTC 08:35 | PROVIDERS: ATTEND Anesthesiology | DX: Z01.812 Encounter for preprocedural laboratory examination (principal) ==

== ENCOUNTER → 2022-09-19 | Outpatient (CLI) | payer OTHER ==
[~2022-09-19] MED LIST changes: +BUPIVACAINE HCL 0.25% 30ML VIAL As Ordered ONE; +ISOVUE-M 300 61% 15ML VIAL As Ordered ONE; +LIDOCAINE 1% SDV 30ML VIAL As Ordered ONE; +TRIAMCINOLONE ACETONIDE SUSP 40MG/ML 1ML VIAL As Ordered ONE; +diazePAM 5MG TABLET As Ordered ONE; +oxyCODONE 5MG TAB As Ordered ONE
== END ==
LOC: M PAIN 10:15
PROVIDERS: ATTEND Anesthesiology
DX: M46.1 Sacroiliitis, not elsewhere classified (principal); F31.9 Bipolar disorder, unspecified; M51.36 Other intervertebral disc degeneration, lumbar region; K21.9 Gastro-esophageal reflux disease without esophagitis; J30.9 Allergic rhinitis, unspecified; F41.9 Anxiety disorder, unspecified; F43.10 Post-traumatic stress disorder, unspecified; M54.2 Cervicalgia; F17.210 Nicotine dependence, cigarettes, uncomplicated; Z79.1 Long term (current) use of non-steroidal anti-inflammatories (NSAID); Z79.899 Other long term (current) drug therapy; Z88.1 Allergy status to other antibiotic agents; Z88.8 Allergy status to other drugs, medicaments and biological substances
CPT/HCPCS: 27096; J3301; S0020

== ENCOUNTER → 2022-11-11 | Outpatient (CLI) | payer OTHER ==
[~2022-11-11] MED LIST changes: -BUPIVACAINE HCL 0.25% 30ML VIAL As Ordered ONE; -ISOVUE-M 300 61% 15ML VIAL As Ordered ONE; -LIDOCAINE 1% SDV 30ML VIAL As Ordered ONE; -TRIAMCINOLONE ACETONIDE SUSP 40MG/ML 1ML VIAL As Ordered ONE; -diazePAM 5MG TABLET As Ordered ONE; -oxyCODONE 5MG TAB As Ordered ONE
== END ==
LOC: M PAIN 09:15
PROVIDERS: ATTEND Nurse Practitioner Family
DX: M46.1 Sacroiliitis, not elsewhere classified (principal); F31.9 Bipolar disorder, unspecified; K21.9 Gastro-esophageal reflux disease without esophagitis; M47.816 Spondylosis without myelopathy or radiculopathy, lumbar region; M51.36 Other intervertebral disc degeneration, lumbar region; F41.9 Anxiety disorder, unspecified; M54.2 Cervicalgia; F17.210 Nicotine dependence, cigarettes, uncomplicated; Z79.899 Other long term (current) drug therapy; Z88.1 Allergy status to other antibiotic agents; Z88.8 Allergy status to other drugs, medicaments and biological substances

== ENCOUNTER → 2022-12-08 | Outpatient (REF) | payer OTHER | LOC: M SFHCPLAZ 09:33 | PROVIDERS: ATTEND Physician Assistant Medical | DX: Z53.9 Procedure and treatment not carried out, unspecified reason (principal) ==

== ENCOUNTER → 2022-12-10 | Outpatient (CLI) | payer OTHER | LOC: M LAB 10:38 | PROVIDERS: ATTEND Physician Assistant Medical | DX: D50.9 Iron deficiency anemia, unspecified (principal); I95.1 Orthostatic hypotension ==

== ENCOUNTER 2022-12-11 09:25 | Outpatient (CLI) | payer OTHER ==
[~2022-12-11] VITALS: Ht 160 cm; Wt 53.6 kg
[2022-12-11 09:47] VITALS: BP 132/60
[2022-12-11 10:10] VITALS: BP 113/69
[2022-12-11 11:24] VITALS: BP 135/74
[2022-12-11 11:50] VITALS: BP 137/80
[2022-12-11 13:10] VITALS: BP 136/83
== END 2022-12-11 09:30 ==
LOC: M INFU 09:25
PROVIDERS: ATTEND Physician Assistant Medical
DX: D50.9 Iron deficiency anemia, unspecified (principal); I95.1 Orthostatic hypotension; Z88.0 Allergy status to penicillin; Z88.8 Allergy status to other drugs, medicaments and biological substances
CPT/HCPCS: 36430; P9016

== ENCOUNTER → 2022-12-12 | Outpatient (REF) | payer OTHER | LOC: M SFHCPLAZ 16:13 | PROVIDERS: ATTEND Physician Assistant Medical | DX: Z53.9 Procedure and treatment not carried out, unspecified reason (principal) ==

== ENCOUNTER → 2022-12-23 | Outpatient (CLI) | payer OTHER | LOC: M PAIN 09:30 | PROVIDERS: ATTEND Nurse Practitioner Family | DX: M46.1 Sacroiliitis, not elsewhere classified (principal); G89.29 Other chronic pain; F31.9 Bipolar disorder, unspecified; M51.36 Other intervertebral disc degeneration, lumbar region; M47.816 Spondylosis without myelopathy or radiculopathy, lumbar region; K21.9 Gastro-esophageal reflux disease without esophagitis; J30.9 Allergic rhinitis, unspecified; F41.9 Anxiety disorder, unspecified; F43.10 Post-traumatic stress disorder, unspecified; M54.2 Cervicalgia; F17.210 Nicotine dependence, cigarettes, uncomplicated; Z79.899 Other long term (current) drug therapy; Z79.1 Long term (current) use of non-steroidal anti-inflammatories (NSAID); Z88.1 Allergy status to other antibiotic agents; Z88.8 Allergy status to other drugs, medicaments and biological substances ==

== ENCOUNTER → 2023-02-17 | Outpatient (CLI) | payer OTHER ==
[~2023-02-17] MED LIST changes: +ISOVUE-M 300 61% 15ML VIAL As Ordered ONE; +LIDOCAINE 1% SDV 30ML VIAL As Ordered ONE; +TRIAMCINOLONE ACETONIDE SUSP 40MG/ML 1ML VIAL As Ordered ONE; +diazePAM 5MG TABLET As Ordered ONE; +oxyCODONE 5MG TAB As Ordered ONE
== END ==
LOC: M PAIN 09:00
PROVIDERS: ATTEND Anesthesiology
DX: M46.1 Sacroiliitis, not elsewhere classified (principal); R79.1 Abnormal coagulation profile; F31.9 Bipolar disorder, unspecified; F41.9 Anxiety disorder, unspecified; M51.36 Other intervertebral disc degeneration, lumbar region; M47.816 Spondylosis without myelopathy or radiculopathy, lumbar region; K21.9 Gastro-esophageal reflux disease without esophagitis; J30.9 Allergic rhinitis, unspecified; F43.10 Post-traumatic stress disorder, unspecified; Z87.820 Personal history of traumatic brain injury; M54.2 Cervicalgia; K28.9 Gastrojejunal ulcer, unspecified as acute or chronic, without hemorrhage or perforation; F17.210 Nicotine dependence, cigarettes, uncomplicated; Z79.1 Long term (current) use of non-steroidal anti-inflammatories (NSAID); Z79.899 Other long term (current) drug therapy; Z88.1 Allergy status to other antibiotic agents; Z88.8 Allergy status to other drugs, medicaments and biological substances
CPT/HCPCS: 27096; J0665; J3301; Q9967

== ENCOUNTER → 2023-04-09 | Outpatient (CLI) | payer OTHER ==
[~2023-04-09] MED LIST changes: -ISOVUE-M 300 61% 15ML VIAL As Ordered ONE; -LIDOCAINE 1% SDV 30ML VIAL As Ordered ONE; +LORA-1041 PO; -LORA-674 PO; -TRIAMCINOLONE ACETONIDE SUSP 40MG/ML 1ML VIAL As Ordered ONE; -diazePAM 5MG TABLET As Ordered ONE; -oxyCODONE 5MG TAB As Ordered ONE
== END ==
LOC: M PAIN 09:45
PROVIDERS: ATTEND Nurse Practitioner Family
DX: M46.1 Sacroiliitis, not elsewhere classified (principal); G89.29 Other chronic pain; F31.9 Bipolar disorder, unspecified; M47.816 Spondylosis without myelopathy or radiculopathy, lumbar region; M51.36 Other intervertebral disc degeneration, lumbar region; K21.9 Gastro-esophageal reflux disease without esophagitis; J30.9 Allergic rhinitis, unspecified; F41.9 Anxiety disorder, unspecified; F43.10 Post-traumatic stress disorder, unspecified; F17.210 Nicotine dependence, cigarettes, uncomplicated; Z79.1 Long term (current) use of non-steroidal anti-inflammatories (NSAID); Z79.899 Other long term (current) drug therapy; Z88.1 Allergy status to other antibiotic agents; Z88.8 Allergy status to other drugs, medicaments and biological substances

== ENCOUNTER → 2023-10-15 | Outpatient (CLI) | payer OTHER | LOC: M LAB 15:45 | PROVIDERS: ATTEND Physician Assistant Medical | DX: D50.9 Iron deficiency anemia, unspecified (principal) ==

== ENCOUNTER 2023-10-16 09:15 | Outpatient (CLI) | payer OTHER ==
[2023-10-16] VITALS (8 sets, daily range): BP systolic 97–140; BP diastolic 51–67; TEMP 98.4–98.9; O2SAT 97–100
[~2023-10-16] VITALS: Ht 160 cm; Wt 56.3 kg
[2023-10-16] MEDS ORDERED: NS 250 ML IV ONE (09:30)
[2023-10-16] MEDS: ACETAMINOPHEN 500 MG TAB PO ONE (10:07)
[2023-10-16] MEDS: diphenhydrAMINE 25MG CAP PO ONE (10:07)
== END 2023-10-16 14:35 ==
LOC: M INFU 09:15
PROVIDERS: ATTEND Physician Assistant Medical
DX: D50.0 Iron deficiency anemia secondary to blood loss (chronic) (principal); Z88.0 Allergy status to penicillin; Z88.8 Allergy status to other drugs, medicaments and biological substances
CPT/HCPCS: 36430; P9016

== ENCOUNTER → 2023-11-18 | Outpatient (CLI) | payer OTHER ==
[2023-11-18 15:12] LABS: BASO % 0.7 % (0.0-1.0); EOS # 0.1 10^3/uL (0.0-0.5); EOS % 1.6 % (0.0-3.0); HEMATOCRIT 28.6 % (36.0-47.0); HEMOGLOBIN 8.2 g/dl (12.0-15.5); LYMPH # 1.4 10^3/uL (1.5-5.0); LYMPH % 23.9 % (24.0-44.0); MONO # 0.5 10^3/uL (0.0-0.8); MONO % 8.7 % (2.0-8.0); NEUTROPHILS # 3.7 10^3/uL (1.5-8.5); NEUTROPHILS % 64.7 % (36.0-66.0); PLATELET COUNT, AUTOMATED 166 10^3/uL (150-450); RED BLOOD COUNT 3.25 10^6/uL (4.00-5.40); WHITE BLOOD COUNT 5.6 10^3/uL (4.0-10.0)
[2023-11-18 15:21] LABS: IRON (FE) 14 UG/DL (50-170)
[2023-11-18 15:22] LABS: ALBUMIN 3.8 G/DL (3.2-5.2); ALKALINE PHOSPHATASE 65 U/L (46-116); ALT/SGPT < 9 U/L (7.0-40); AST/SGOT < 8 U/L (<34); BILIRUBIN,TOTAL 0.2 MG/DL (0.3-1.2); BLOOD UREA NITROGEN 11 MG/DL (9-23); CALCIUM LEVEL 8.8 MG/DL (8.5-10.1); CARBON DIOXIDE LEVEL 24 MMOL/L (20-31); CHLORIDE LEVEL 111 MMOL/L (98-107); CHOLESTEROL LEVEL 159 MG/DL (<200); CHOLESTEROL RISK RATIO 5.14 (<5); CREATININE FOR GFR 0.37 MG/DL (0.55-1.30); GLOMERULAR FILTRATION RATE > 60.0 (>60); GLUCOSE, FASTING 85 MG/DL (60-100); HDL CHOLESTEROL 30.9 MG/DL (>40); LDL CHOLESTEROL 91.7 MG/DL (<100); NON-HDL-C 128.1 MG/DL; POTASSIUM SERUM 4.4 MMOL/L (3.5-5.1); SODIUM LEVEL 142 MMOL/L (136-145); TOTAL PROTEIN 6.9 G/DL (5.7-8.2); TRIGLYCERIDES LEVEL 182 MG/DL (<150)
[2023-11-18 15:23] LABS: THYROID STIMULATING HORMONE 1.647 uIU/ML (0.55-4.78)
[2023-11-18 15:24] LABS: FERRITIN 2.9 NG/ML (7.3-270.7); FREE T4 0.76 NG/DL (0.89-1.76)
[2023-11-18 15:48] LABS: MEAN CORPUSCULAR HEMOGLOBIN 24.7 pg (27.0-33.0); MEAN CORPUSCULAR HGB CONC 29.5 g/dl (32.0-36.5); MEAN CORPUSCULAR VOLUME 83.7 fl (80.0-96.0)
== END ==
LOC: M PLALAB 11:12
PROVIDERS: ATTEND Physician Assistant Medical
DX: D50.0 Iron deficiency anemia secondary to blood loss (chronic) (principal); Z13.220 Encounter for screening for lipoid disorders; F41.9 Anxiety disorder, unspecified

== ENCOUNTER → 2023-11-23 | Outpatient (CLI) | payer OTHER | LOC: M LAB 11:22 | PROVIDERS: ATTEND Physician Assistant Medical | DX: D50.9 Iron deficiency anemia, unspecified (principal) ==

== ENCOUNTER 2023-11-24 06:50 | Outpatient (CLI) | payer OTHER ==
[2023-11-24] MEDS ORDERED: NS 250 ML IV ONE (07:00)
[2023-11-24 07:05] VITALS: BP 126/60; O2SAT 99
[2023-11-24] MEDS: ACETAMINOPHEN 325 MG TAB PO ONE (07:12)
[2023-11-24] MEDS: diphenhydrAMINE 25MG CAP PO ONE (07:12)
[2023-11-24 07:51] VITALS: BP 122/58; TEMP 97.8; O2SAT 100
[2023-11-24 09:12] VITALS: BP 124/62; TEMP 97.8; O2SAT 100
[2023-11-24 09:55] VITALS: BP 114/53; TEMP 98; O2SAT 100
[2023-11-24 11:00] VITALS: BP 122/66; TEMP 97.6; O2SAT 100
[2023-11-24 11:29] VITALS: BP 131/65; O2SAT 97
== END 2023-11-24 07:05 | disposition home or self-care (01) ==
LOC: M INFU 06:50
PROVIDERS: ATTEND Physician Assistant Medical
DX: D50.0 Iron deficiency anemia secondary to blood loss (chronic) (principal); Z88.0 Allergy status to penicillin; Z88.1 Allergy status to other antibiotic agents; Z88.8 Allergy status to other drugs, medicaments and biological substances
CPT/HCPCS: 36430; P9016

== ENCOUNTER 2025-02-24 07:18 | Outpatient (CLI) | payer OTHER ==
[~2025-02-24] VITALS: Ht 160 cm; Wt 54.5 kg
[~2025-02-24 07:18] MED LIST changes: +ALBUTEROL SULFATE 2.5 MG/0.5 ML INH CONCENTRATE NEB SOLN INH PRN; +BACL1TAB9 PO; +CYMB1CAP4 PO; +EPINEPHrine INJ 1 MG/ML 1ML AMP IM PRN; +MELO15TA28 PO; +VITA100T59 PO; +diphenhydrAMINE 50 MG/ML VIAL IV PRN
[2025-02-24 07:30] VITALS: BP 142/69; O2SAT 100
[2025-02-24] MEDS: diphenhydrAMINE 50 MG/ML VIAL IV ONE (07:37)
[2025-02-24] MEDS: ACETAMINOPHEN 650 MG PO ONE (07:40)
[2025-02-24] MEDS: IRON SUCROSE 300 MG in NS 250 ML OVER 90 MIN. IV ONE (08:17)
[2025-02-24 09:55] VITALS: BP 125/68; O2SAT 98
== END 2025-02-24 09:55 | disposition home or self-care (01) ==
LOC: M INFU 07:18
PROVIDERS: ATTEND Physician Assistant Medical
DX: D50.0 Iron deficiency anemia secondary to blood loss (chronic) (principal); Z88.1 Allergy status to other antibiotic agents; Z88.8 Allergy status to other drugs, medicaments and biological substances
CPT/HCPCS: 96365; 96366; 96375; J1200; J1756; J2919